=== PATIENT | female | born 1965 | race Caucasian/White ===

== ENCOUNTER 2024-03-11 21:59 | Emergency (ER) | payer BC, SELFPAY ==
--- OUTSIDE RECORDS SUMMARY | 2024-03-11 22:03 | XMS REPORT | Continuity of Care Document ---
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 another medical problem, are taking prescription medicines, or are an older adult. Treatment most often involves lifestyle changes. You may also need medicines. Your healthcare provider will tell you which will work best for you. Follow the advice below to help avoid this problem in the future. Lifestyle changes These lifestyle changes can help prevent constipation: ? Diet. Eat a high-fiber diet, with fresh fruit and vegetables, and reduce dairy intake, meats, and processed foods ? Fluids. It's important to get enough fluids each day. Drink plenty of water when you eat more fiber. If you are on diet that limits the amount of fluid you can have, talk about this with your healthcare provider. ? Regular exercise. Check with your healthcare provider first. Medicines Take any medicines as directed. Some laxatives are safe to use only every now and then. Others can be taken on a regular basis. While laxatives don't cause bowel dependence, they are treating the symptoms. So your constipation may return if you don't make other changes. Talk with your healthcare provider or pharmacist if you have questions. Prescription pain medicines can cause constipation. If you are taking this kind of medicine, ask your healthcare provider if you should also take a stool softener. Medicines you may take to treat constipation include: ? Fiber supplements ? Stool softeners ? Laxatives ? Enemas ? Rectal suppositories Follow-up care Follow up with your healthcare provider if symptoms don't get better in the next few days. You may need to have more tests or see a specialist. Call 911 Call 911 if any of these occur: ? Trouble breathing ? Stiff, rigid abdomen that is severely painful to touch ? Large amount of blood in the stool ? Confusion ? Fainting or loss of consciousness ? Rapid heart rate ? Chest pain When to seek medical advice Call your healthcare provider right away if any of these occur: ? Fever of 100.4?F (38?C) or higher, or as directed by your healthcare provider ? Failure to resume normal bowel movements ? Pain in your abdomen or back gets worse ? Nausea or vomiting ? Swelling in your abdomen ? Small amount of blood in the stool ? Black, tarry stool ? Involuntary weight loss ? Weakness Last Reviewed Date: 2021 ? [id number] [employer]. All rights reserved. This information is not intended as a substitute for professional medical care. Always follow your healthcare professional's instructions. [facility]2024-08-15 12:11:49 [facility]ed [facility] 11[facility]35[facility]54 I called patient back. She stated that she would like to know what to do from here regarding her knee. I told her to make an appointment to see Dr Salguero and we can go from there. [facility] MedicineMem[facility] HospitalBtsvpcq3795-36-61 11:30:00 Copied from [facility] #[id number]. Topic: PCP/Nurse Question >> Jan 07, 2024 11:28 AM Ximena Jimenez wrote: Jess Little called to speak with a nurse or provider. Pt is asking for a referral for her knee pt is asking for a call back please and tk you [facility] HospitalWlbwqmh5614-84-71 19:23:10* [facility] HospitalVwpnnor1545-18-11 19:23:10 [facility] HospitalGjpycuf6712-15-40 19:23:10 [facility] HospitalMtpkeay2065-25-76 07:30:37* [facility] HospitalItduxdk0698-61-16 07:30:37 [facility] HospitalVzmpiqk2691-10-38 07:30:37 [facility] HospitalUmboujo1457-85-06 17:29:41 Attention: MA/Nurse Pharmacy support is unable to resolve this request because the patient is more than 90 days overdue for an office visit and/or labs. Please follow your clinic workflow to resolve this request. Requested Prescriptions Pending Prescriptions Disp Refills traZODone (Desyrel) 100 MG tablet [Pharmacy Med Name: Trazodone 100mg Tablet] 90 tablet Sig: TAKE ONE (1) TABLET(S) BY MOUTH AT BEDTIME. Patient needs: office visit *Additional Information: Acute visit 04/27/23 No recent documentation. Review to acknowledge stable and continuation of current therapy. [facility]Me[facility] [id number] 17:12:19 Images from the original note were not included. Recommendation for pharmacist: *Refill - 90 day supply + 1 refill (6 months) Requested Prescriptions Pending Prescriptions Disp Refills traZODone (Desyrel) 100 MG tablet [Pharmacy Med Name: Trazodone 100mg Tablet] 90 tablet Sig: TAKE ONE (1) TABLET(S) BY MOUTH AT BEDTIME. Patient needs: office visit by April 2024 Courtesy refill?: No *Additional Info: Pharmacy TechnicianMemorial Hermann Pearland [id number] 17:10:24* [facility] 2023-11-24 17:10:24 [facility] HospitalIrkvogo8762-42-32 17:10:24 [facility] HospitalZroaaaa2227-11-00 12:03:45 Images from the original note were not included. Attention: MA/Nurse Pharmacy support is unable to resolve this request because the patient is more than 90 days overdue for an office visit and/or labs. Please review with the provider and follow your clinic workflow to resolve this request. Requested Prescriptions Pending Prescriptions Disp Refills montelukast (Singulair) 10 MG tablet [Pharmacy Med Name: Montelukast 10mg Tablet] 90 tablet Sig: TAKE ONE (1) TABLET(S) BY MOUTH AT BEDTIME. *Additional Information: Pharmacy TechnicianMisael Campbell
[2024-03-11] MEDS ORDERED: FAMOTIDINE 20 MG/2 ML VIAL IV ONE (22:59)
[2024-03-11] MEDS ORDERED: MORPHINE 4 MG/ML SYR ONE (23:00)
[2024-03-11] MEDS ORDERED: ONDANSETRON 4 MG/2 ML VIAL ONE (23:00)
[2024-03-11] MEDS ORDERED: KETOROLAC 30 MG/ML INJ ONE (23:00)
[2024-03-11] MEDS ORDERED: NA CHLORIDE 0.9% 1,000 ML ONE (23:01)
[2024-03-11 23:06] LABS: Absolute Basophils 0.1 K/uL (0-0.5); Absolute Eosinophils 0.1 K/uL (0-0.5); Absolute Lymphocytes (CBC) 2.7 K/uL (0.7-4.9); Absolute Neutrophil 4.4 K/uL (1.8-8.0); Basophils % 0.8 % (0-1.3); Eosinophils % 1.3 % (0-4.4); Hemoglobin 12.8 g/dL (12.0-15.0); Lymphocytes % 32.5 % (15.3-44.8); MCH 30.7 pg (27.0-35.0); MCHC 33.7 g/dL (32.0-36.0); MCV 91.2 fL (80-100); MPV 7.3 fL (7.6-11.3); Neutrophils % 53.4 % (41.7-73.7); Platelets 250 thou/uL (152-406); RBC Red Blood Cell Count 4.17 M/uL (3.86-4.86)
[2024-03-11 23:07] LABS: Renal Epithelial <5 /HPF (None Seen); Specific Gravity < 1.005 (1.005-1.030); Sqamous Epithelial None Seen /HPF (None Seen); Urine Bacteria None Seen /HPF (<20); Urine Bilirubin NEGATIVE (Negative); Urine Blood Negative (Negative); Urine Clarity Clear (Clear); Urine Color Colorless (Yellow); Urine Culture Reflex Order NOT NEEDED; Urine Glucose NEGATIVE (Negative); Urine Ketones NEGATIVE (Negative); Urine Microscopic Reflex YN ORDER UMIC; Urine Nitrite NEGATIVE (Negative); Urine Protein NEGATIVE (Negative); Urine RBC None Seen /HPF (None Seen); Urine Urobilinogen Normal (Normal); Urine WBC <5 /HPF (<5)
[2024-03-11 23:21] LABS: Albumin 3.8 g/dL (3.4-5.0); Albumin/Globulin Ratio 1.2 (1.1-1.8); Anion Gap 8.8 mEq/L (5.0-15.0); Bilirubin Total 0.4 mg/dL (0.2-1.0); Globulin 3.3 g/dL (2.3-3.5); Potassium 3.8 mEq/L (3.5-5.1); Protein, Total 7.1 g/dL (6.4-8.2)
[2024-03-11] MEDS ORDERED: methocarbamoL 750 MG TAB ONE (23:41)
--- NOTE | 2024-03-12 02:16 | EDPHYS ---
Physician Documentation [facility] Name: Almaz Tran Age: 59 yrs Sex: Female : 1965 Arrival Date: 03/11/2024 Time: 21:59 Bed 13 Private MD: ED Physician Jalen Naik HPI: 03/11 22:03 This 59 yrs old Female presents to ER via Unassigned with complaints of Back sp4 Pain, Hip Pain. 03/12 19:30 59-year-old female presents with upper thoracic back pain, the past 1 week that did not sp4 improve with medications provided at the urgent care clinic.. Historical: - Allergies: 03/11 23:10 Codeine; ha1 - PMHx: 23:10 Anxiety; ha1 - PSHx: 23:10 Tonsillectomy; ha1 23:11 Appendectomy; ha1 - Immunization history:: Adult Immunizations up to date. - Infectious Disease History:: Denies. - Social history:: Smoking status: Patient/guardian denies using tobacco, the patient reports quitting approximately 2 years ago. - Family history:: not pertinent. ROS: 03/12 19:30 Constitutional: Negative for fever, chills, and weight loss, Eyes: Negative for injury, sp4 pain, redness, and discharge, Back: Positive for Positive for upper back pain, All other systems are negative, Exam: 02:46 Constitutional: This is a well developed, well nourished patient who is awake, alert, sp4 and in no acute distress. Head/Face: Normocephalic, atraumatic. Eyes: Pupils equal round and reactive to light, extra-ocular motions intact. Lids and lashes normal. Conjunctiva and sclera are not injected. Cornea within normal limits. Periorbital areas with no swelling, redness, or edema. ENT: Nares patent. No nasal discharge, no septal abnormalities noted. Tympanic membranes are normal and external auditory canals are clear. Oropharynx with no redness, swelling, or masses, exudates, or evidence of obstruction, uvula midline. Mucous membranes moist. Neck: Trachea midline, no thyromegaly or masses palpated, and no cervical lymphadenopathy. Supple, full range of motion without nuchal rigidity, or vertebral point tenderness. Chest/axilla: Normal chest wall appearance and motion. Nontender with no deformity. No lesions are appreciated. Cardiovascular: Regular rate and rhythm with a normal S1 and S2. No gallops, murmurs, or rubs. Normal PMI, no JVD. No pulse deficits. Respiratory: Lungs have equal breath sounds bilaterally, clear to auscultation and percussion. No rales, rhonchi or wheezes noted. No increased work of breathing, no retractions or nasal flaring. Abdomen/GI: Soft, with normal bowel sounds. No distension or tympany. No guarding or rebound. No evidence of tenderness throughout. Back: No spinal tenderness. No costovertebral tenderness. Skin: Warm, dry with normal turgor. Normal color with no rashes, no lesions, and no evidence of cellulitis. MS/ Extremity: Pulses equal, no cyanosis. Neurovascular intact. Full, normal range of motion. Neuro: Awake and alert, GCS 15, oriented to person, place, time, and situation. Cranial nerves II-XII grossly intact. Motor strength 5/5 in all extremities. Sensory grossly intact. Psych: Awake, alert, with orientation to person, place and time. Behavior, mood, and affect are within normal limits 02:46 ECG was reviewed by the Attending Physician. EKG 02:26 Sinus Aroldo at 58 bpm Vital Signs: 03/11 22:06 BP 155 / 75; Pulse 75; Resp 17 S; Temp 97.2(T); Pulse Ox 97% on R/A; Weight 66.68 kg; ha1 Height 5 ft. 6 in. ; Pain 8/10; 22:30 BP 142 / 72; Pulse 75; Resp 17; Temp 98; Pulse Ox 100% ; Pain 10/10; rg5 23:30 BP 149 / 77; Pulse 66; Resp 17; Pulse Ox 97% on R/A; Pain 3/10; rg5 03/12 00:00 BP 149 / 75; Pulse 68; Resp 17; Pulse Ox 96% on R/A; rg5 01:30 BP 105 / 52; Pulse 69; Resp 17; Pulse Ox 96% on R/A; Pain 6/10; rg5 02:16 BP 123 / 66; Pulse 67; Resp 17; Pulse Ox 95% on R/A; Pain 5/10; rg5 03/11 22:06 Body Mass Index 23.73 (66.68 kg, 167.64 cm) ha1 03/11 22:06 Pain Scale: Adult ha1 22:30 Pain Scale: Adult rg5 23:30 Pain Scale: Adult rg5 01:30 Pain Scale: Adult rg5 02:16 Pain Scale: Adult rg5 Ni Coma Score: 03/11 22:30 Eye Response: spontaneous(4). Motor Response: obeys commands(6). Verbal Response: rg5 oriented(5). Total: 15. 03/12 19:30 Eye Response: spontaneous(4). Motor Response: obeys commands(6). Verbal Response: sp4 oriented(5). Total: 15. MDM: 03/11 22:08 Medical Screening Exam initiated sp4 03/12 19:30 Differential diagnosis: arthritis, chronic back pain, Fatigue Fracture Joint Injury sp4 Osteoporosis ruptured disc. Data reviewed: vital signs, nurses notes, lab test result(s), radiologic studies, CT scan. Consideration of Admission/Observation Escalation of care including admission/observation considered. ED course: PROCEDURE: CT Chest, Abdomen and Pelvis With Intravenous Contrast CLINICAL INDICATION: The patient is 59 years old and is Female; Chest pain. TECHNIQUE: Axial computed tomography images of the chest, abdomen and pelvis with intravenous contrast. Sagittal and coronal reformatted images were created and reviewed. This CT exam was performed using one or more of the following dose reduction techniques: automated exposure control, adjustment of the mA and/or kV according to patient size, and/or use of iterative reconstruction technique. COMPARISON: None. FINDINGS: CHEST: LUNGS: Unremarkable No mass. No consolidation. PLEURAL SPACE: Unremarkable No significant effusion. No pneumothorax. HEART: No cardiomegaly. No significant pericardial effusion. ABDOMEN: LIVER: Focal fatty change along the falciform ligament. Otherwise, no focal hepatic parenchymal abnormality, allowing for phase of contrast. GALLBLADDER AND BILE DUCTS: Unremarkable No calcified stones. No ductal dilation. PANCREAS: Unremarkable No ductal dilation. No mass. SPLEEN: Unremarkable No splenomegaly. ADRENALS: Unremarkable No mass. KIDNEYS AND URETERS: Simple exophytic right-sided renal cyst. No follow-up of this simple cyst is necessary. Otherwise bilaterally symmetric nephrograms. No hydronephrosis or obstructive intrarenal or intraureteral stones. No solid mass. STOMACH AND BOWEL: Moderate ascending and transverse colonic stool burden. No evidence of small or large bowel obstruction. No perienteric or pericolonic fat stranding or abnormal mucosal thickening. PELVIS: APPENDIX: No findings to suggest acute appendicitis. BLADDER: Unremarkable No mass. REPRODUCTIVE: Hysterectomy. CHEST, ABDOMEN and PELVIS: INTRAPERITONEAL SPACE: Unremarkable No significant fluid collection. No free air. BONES/JOINTS: Osteitis pubis incidentally demonstrated. Intraosseous hemangioma within the T12 vertebral body. Relative osteopenic appearance of the bones, particularly in the pelvis and proximal visualized bilateral femurs. No dislocation. No displaced or depressed rib fractures. No appreciable sternal or vertebral fractures. No suspicious lytic or blastic bone lesions. No central pulmonary arterial filling defects. SOFT TISSUES: Unremarkable VASCULATURE: Allowing for motion artifact about the level of the aortic valve, no thoracic aortic aneurysm or gross dissection. Mild thoracic and moderate abdominal aortic calcified atherosclerosis. No abdominal aortic aneurysm or dissection. Moderate multivessel coronary calcifications, greatest in the left main and proximal LAD. LYMPH NODES: Unremarkable No enlarged lymph nodes. IMPRESSION: 1. No acute abnormality of the chest, abdomen, or pelvis. 2. Moderate multivessel coronary calcifications, greatest in the left main and proximal LAD. 3. Relative osteopenic appearance of the bones, particularly in the pelvis and proximal visualized bilateral femurs. Consider further characterization by DEXA scan if not recently performed. 4. Additional non acute findings as above. Electronically signed by: Burak Fontana MD 03/12/2024 01:43 AM . 03/11 22:24 Order name: CBC with Diff; Complete Time: 01: sp4 03/11 22:24 Order name: CMP; Complete Time: : sp4 03/11 22:24 Order name: Lipase; Complete Time: : sp4 03/11 22:24 Order name: Urinalysis w/ reflexes; Complete Time: : sp4 03/11 22:24 Order name: CT Chest, Abdomen, Pelvis - W/Contrast sp4 03/12 02:16 Order name: EKG; Complete Time: : sp4 03/11 22:24 Order name: IV Saline Lock; Complete Time: 23: sp4 03/11 22:24 Order name: Labs collected and sent; Complete Time: 23: sp4 03/12 02:16 Order name: EKG - Nurse/Tech; Complete Time: sp4 EC:26 Rate is 58 beats/min. Rhythm is regular, Sinus bradycardia. QRS [place] is Normal. LA sp4 interval is normal. QRS interval is normal. QT interval is normal. No Q waves. T waves are Normal. No ST changes noted. Clinical impression: No evidence of ischemia. Interpreted by me. Reviewed by me. Administered Medications: 03/11 23:00 Drug: Famotidine IVP 20 mg IVP once; dilute with 10 mL 0.9% NaCl; give over 2 minutes rg5 Route: IVP; Site: right antecubital; 03/12 00:05 Follow up: Response: No adverse reaction rg5 03/11 23:00 Drug: TORadol - Ketorolac IVP 15 mg IVP once Route: IVP; Site: right antecubital; rg5 03/12 00:07 Follow up: Response: No adverse reaction; Pain is decreased rg5 03/11 23:00 Drug: Ondansetron IVP 4 mg IVP once; over 2 minutes Route: IVP; Site: right antecubital;rg5 03/12 00:06 Follow up: Response: No adverse reaction rg5 03/11 23:00 Drug: NS 0.9% IV 1000 ml IV at 1 bolus Per protocol; to be given as a bolus over 60 rg5 minutes Route: IV; Rate: 1 bolus; Site: right antecubital; 23:00 Follow up: IV Status: Completed infusion; IV Intake: 1000ml rg5 23:20 Drug: morphine IVP or IV 4 mg IVP once over 4 mins Route: IVP; Infused Over: 4 mins; rg5 Site: right antecubital; 03/12 00:07 Follow up: Response: No adverse reaction; Pain is decreased rg5 03/11 23:42 Drug: Methocarbamol PO 1500 mg PO once Route: PO; rg5 03/12 00:00 Follow up: Response: No adverse reaction; Pain is decreased rg5 Disposition Summary: 03/12/24 02:30 Discharge Ordered Problem: new(03/12/24 02:30) sp4 Symptoms: have improved(03/12/24 02:30) sp4 Condition: Stable(03/12/24 02:30) sp4 Diagnosis - Acute Thoracic back pain sp4 Followup: sp4 - With: Rich Garcia MD - When: 7 - 10 days - Reason: Recheck today's complaints Discharge Instructions: - Discharge Summary Sheet sp4 - Acute Back Pain, Adult sp4 Forms: - Patient Portal Instructions sp4 Prescriptions: - Ibuprofen 800 mg Oral Tablet - take 1 tablet ORAL route every 8 hours As needed take with food; 30 tablet; sp4 Refills: 0, Product Selection Permitted - Tramadol 50 mg Oral tablet - take 1 tablet ORAL route every 8 hours as needed; 20 tablet; Refills: 0, sp4 Product Selection Permitted - methocarbamol 750 mg Oral tablet - take 1 tablet ORAL route every 8 hours for 2 weeks PRN back pain; 60 tablet; sp4 Refills: 0, Product Selection Permitted Signatures: Dispatcher [employer] EDMS Stacey Rolle RN RN ha1 Jalen Naik MD MD sp4 Mehrdad Mcduffie RN RN rg5 Corrections: (The following items were deleted from the chart) 03/11 22:24 22:24 CBC+H.LAB.BRZ ordered. EDMS EDMS 22:24 22:24 COMPREHENSIVE METABOLIC PANEL+C.LAB.BRZ ordered. EDMS EDMS 22:24 22:24 LIPASE+C.LAB.BRZ ordered. EDMS EDMS 22:24 22:24 Urinalysis+U.LAB.BRZ ordered. EDMS EDMS 23:12 23:10 Allergies: No Known Allergies; ha1 ha1 03/12 02:17 02:16 Home sp4 sp4 02:17 02:16 new sp4 sp4 02:17 02:16 have improved sp4 sp4 02:17 02:16 Stable sp4 sp4 02:17 02:16 Low back pain sp4 sp4 02:17 02:16 Acute thoracic back pain sp4 sp4
--- NOTE | 2024-03-12 02:16 | ER ---
Nurse's Notes [facility] Name: Almaz Tran Age: 59 yrs Sex: Female : 1965 Arrival Date: 03/11/2024 Time: 21:59 Bed 13 Private MD: Diagnosis: Acute Thoracic back pain Presentation: 03/11 22:06 Chief complaint: Patient states: BACK FLANK PAIN PAST FOUR DAYS. ha1 22:06 Coronavirus screen: Vaccine status: Patient reports receiving the 2nd dose of the covid ha1 vaccine. [employer]ex[employer]. Ebola Screen: No symptoms or risks identified at this time. Initial Sepsis Screen: Does the patient meet any 2 criteria? No. Patient's initial sepsis screen is negative. Does the patient have a suspected source of infection? No. Patient's initial sepsis screen is negative. Risk Assessment: Do you want to hurt yourself or someone else? Patient reports no desire to harm self or others. Onset of symptoms was March 11, 2024. 22:06 Method Of Arrival: Ambulatory ha1 22:06 Acuity: ELIGIO 3 ha1 Triage Assessment: 23:11 General: Appears uncomfortable, Behavior is cooperative. Pain: Complains of pain in ha1 back. Neuro: Level of Consciousness is awake, alert, obeys commands, Oriented to person, place, time, situation. Cardiovascular: Patient's skin is warm and dry. Respiratory: Airway is patent Respiratory effort is even, unlabored, Respiratory pattern is regular, symmetrical. Musculoskeletal: Circulation, motion, and sensation intact. Historical: - Allergies: 23:10 Codeine; ha1 - PMHx: 23:10 Anxiety; ha1 - PSHx: 23:10 Tonsillectomy; ha1 23:11 Appendectomy; ha1 - Immunization history:: Adult Immunizations up to date. - Infectious Disease History:: Denies. - Social history:: Smoking status: Patient/guardian denies using tobacco, the patient reports quitting approximately 2 years ago. - Family history:: not pertinent. Screenin:30 [facility] ED Fall Risk Assessment (Adult) History of falling in the last 3 months, rg5 including since admission No falls in past 3 months (0 pts) Confusion or Disorientation No (0 pts) Intoxicated or Sedated No (0 pts) Impaired Gait No (0 pts) Mobility Assist Device Used No (0 pt) Altered Elimination No (0 pt) Score/Fall Risk Level 0 - 2 = Low Risk Oriented to surroundings, Maintained a safe environment, Educated pt \T\ family on fall prevention, incl call for assistance when getting out of bed, Hourly rounding (assess needs \T\ fall precautionary measures) done. Abuse screen: Denies threats or abuse. Nutritional screening: No deficits noted. Tuberculosis screening: No symptoms or risk factors identified. Assessment: 22:30 General: Appears in no apparent distress. comfortable. rg5 22:30 Pain: Complains of pain in back Pain radiates to right lower back Pain currently is 10 rg5 out of 10 on a pain scale. Quality of pain is described as aching. Neuro: Level of Consciousness is awake, alert, obeys commands, Oriented to person, place, time, situation. Cardiovascular: Denies chest pain, Heart tones S1 S2 Patient's skin is warm and dry. Respiratory: Airway is patent Trachea midline Respiratory effort is even, unlabored, Respiratory pattern is regular, symmetrical. GI: Abdomen is round Bowel sounds present X 4 quads. Abd is soft and non tender. : No signs and/or symptoms were reported regarding the genitourinary system. EENT: No deficits noted. Derm: Skin is intact, Skin is dry, Skin is normal, Skin temperature is warm. Musculoskeletal: Circulation, motion, and sensation intact. Range of motion: intact in all extremities. 23:00 Reassessment: Patient and/or family updated on plan of care and expected duration. Pain rg5 level reassessed. Patient is alert, oriented x 3, equal unlabored respirations, skin warm/dry/pink. 03/12 00:23 Reassessment: Patient and/or family updated on plan of care and expected duration. Pain rg5 level reassessed. Patient is alert, oriented x 3, equal unlabored respirations, skin warm/dry/pink. Patient states symptoms have improved. 01:30 Reassessment: Patient and/or family updated on plan of care and expected duration. Pain rg5 level reassessed. Patient is alert, oriented x 3, equal unlabored respirations, skin warm/dry/pink. Patient states symptoms have improved. 02:00 Reassessment: Patient and/or family updated on plan of care and expected duration. Pain rg5 level reassessed. Patient is alert, oriented x 3, equal unlabored respirations, skin warm/dry/pink. Patient states feeling better. Patient states symptoms have improved. Vital Signs: 03/11 22:06 BP 155 / 75; Pulse 75; Resp 17 S; Temp 97.2(T); Pulse Ox 97% on R/A; Weight 66.68 kg; ha1 Height 5 ft. 6 in. ; Pain 8/10; 22:30 BP 142 / 72; Pulse 75; Resp 17; Temp 98; Pulse Ox 100% ; Pain 10/10; rg5 23:30 BP 149 / 77; Pulse 66; Resp 17; Pulse Ox 97% on R/A; Pain 3/10; rg5 03/12 00:00 BP 149 / 75; Pulse 68; Resp 17; Pulse Ox 96% on R/A; rg5 01:30 BP 105 / 52; Pulse 69; Resp 17; Pulse Ox 96% on R/A; Pain 6/10; rg5 02:16 BP 123 / 66; Pulse 67; Resp 17; Pulse Ox 95% on R/A; Pain 5/10; rg5 03/11 22:06 Body Mass Index 23.73 (66.68 kg, 167.64 cm) ha1 03/11 22:06 Pain Scale: Adult ha1 22:30 Pain Scale: Adult rg5 23:30 Pain Scale: Adult rg5 01:30 Pain Scale: Adult rg5 02:16 Pain Scale: Adult rg5 Ni Coma Score: 03/11 22:30 Eye Response: spontaneous(4). Motor Response: obeys commands(6). Verbal Response: rg5 oriented(5). Total: 15. 03/12 19:30 Eye Response: spontaneous(4). Motor Response: obeys commands(6). Verbal Response: sp4 oriented(5). Total: 15. ED Course: 03/11 22:02 Patient arrived in ED. jj6 22:03 Jalen Naik MD is Attending Physician. sp4 22:07 Mehrdad Mcduffie, ALIE is Primary Nurse. rg5 22:30 Patient has correct armband on for positive identification. Bed in low position. Call rg5 light in reach. Side rails up X 1. Door closed. Noise minimized. Warm blanket given. 22:30 Arm band placed on. rg5 22:30 No provider procedures requiring assistance completed. Inserted saline lock: 20 gauge rg5 in right antecubital area, using aseptic technique. Blood collected. Flushed with 10 mL NS. 23:10 Triage completed. ha1 03/12 00:10 CT Chest, Abdomen, Pelvis - W/Contrast In Process Unspecified. EDMS 02:14 Rich Garcia MD is Referral Physician. sp4 02:17 Provided Education on: POST ER CARE. rg5 02:18 IV discontinued, bleeding controlled, No redness/swelling at site. Pressure dressing rg5 applied. 02:29 Rich Garcia MD is Referral Physician. sp4 Administered Medications: 03/11 23:00 Drug: Famotidine IVP 20 mg IVP once; dilute with 10 mL 0.9% NaCl; give over 2 minutes rg5 Route: IVP; Site: right antecubital; 03/12 00:05 Follow up: Response: No adverse reaction rg5 03/11 23:00 Drug: TORadol - Ketorolac IVP 15 mg IVP once Route: IVP; Site: right antecubital; rg5 03/12 00:07 Follow up: Response: No adverse reaction; Pain is decreased rg5 03/11 23:00 Drug: Ondansetron IVP 4 mg IVP once; over 2 minutes Route: IVP; Site: right antecubital;rg5 03/12 00:06 Follow up: Response: No adverse reaction rg5 03/11 23:00 Drug: NS 0.9% IV 1000 ml IV at 1 bolus Per protocol; to be given as a bolus over 60 rg5 minutes Route: IV; Rate: 1 bolus; Site: right antecubital; 23:00 Follow up: IV Status: Completed infusion; IV Intake: 1000ml rg5 23:20 Drug: morphine IVP or IV 4 mg IVP once over 4 mins Route: IVP; Infused Over: 4 mins; rg5 Site: right antecubital; 03/12 00:07 Follow up: Response: No adverse reaction; Pain is decreased rg5 03/11 23:42 Drug: Methocarbamol PO 1500 mg PO once Route: PO; rg5 03/12 00:00 Follow up: Response: No adverse reaction; Pain is decreased rg5 Medication: 03/11 22:30 VIS not applicable for this client. rg5 Intake: 23:00 IV: 1000ml; Total: 1000ml. rg5 Outcome: 03/12 02:16 Discharge ordered by . sp4 02:30 Discharge ordered by . sp4 02:43 Discharged to home ambulatory, rg5 02:43 Condition: stable 02:43 Discharge instructions given to patient, Instructed on discharge instructions, follow up and referral plans. Demonstrated understanding of instructions, follow-up care, medications, Prescriptions given X 3, 02:44 Patient left the ED. rg5 Signatures: Dispatcher [employer] EDMS Monica Susannah [email or web address] Stacey Rolle, RN RN ha1 Jalen Naik MD MD sp4 Mehrdad Mcduffie RN RN rg5 Corrections: (The following items were deleted from the chart) 03/11 23:12 23:10 Allergies: No Known Allergies; ha1 ha1
--- NOTE | 2024-03-12 06:26 | RAD REPORT ---
PROCEDURE: CT Chest, Abdomen and Pelvis With Intravenous Contrast CLINICAL INDICATION: The patient is 59 years old and is Female; Chest pain. TECHNIQUE: Axial computed tomography images of the chest, abdomen and pelvis with intravenous contrast. Sagitt al and coronal reformatted images were created and reviewed. This CT exam was performed using one or more of the following dose reduction techniques: automated exposure control, adjustment of the m A and/or kV according to patient size, and/or use of iterative reconstruction technique. COMPARISON: None. FINDINGS: CHEST: LUNGS: Unremarkable No mass. No consolidation. PLEURAL SPACE: Unremarkable No significant effusion. No pneumothorax. HEART: No cardiomegaly. No significant pericardial effusion. ABDOMEN: LIVER: Focal fatty change along the falciform ligament. Otherwise, no focal hepatic parenchymal abn ormality, allowing for phase of contrast. GALLBLADDER AND BILE DUCTS: Unremarkable No calcified stones. No ductal dilation. PANCREAS: Unremarkable No ductal dilation. No mass. SPLEEN: Unremarkable No splenomegaly. ADRENALS: Unremarkable No mass. KIDNEYS AND URETERS: Simple exophytic right-sided renal cyst. No follow-up of this simple cyst is necessary. Otherwise bilaterally symmetric nephrograms. No hydronephrosis or obstructive intrarenal or intraureteral stones. No solid mass. STOMACH AND BOWEL: Moderate ascending and transverse colonic stool burden. No evidence of small or large bowel obstruction. No perienteric or pericolonic fat stranding or abnormal mucosal thickening. PELVIS: APPENDIX: No findings to suggest acute appendicitis. BLADDER: Unremarkable No mass. REPRODUCTIVE: Hysterectomy. CHEST, ABDOMEN and PELVIS: INTRAPERITONEAL SPACE: Unremarkable No significant fluid collection. No free air. BONES/JOINTS: Osteitis pubis incidentally demonstrated. Intraosseous hemangioma within the T12 vertebral body. Relative osteopenic appearance of the bones, particularly in the pelvis and proximal visualiz ed bilateral femurs. No dislocation. No displaced or depressed rib fractures. No appreciable sternal or vertebral fractures. No suspicious lytic or blastic bone lesions. No central pulmonary arterial filling defects. SOFT TISSUES: Unremarkable VASCULATURE: Allowing for motion artifact about the level of the aortic valve, no thoracic aortic a neurysm or gross dissection. Mild thoracic and moderate abdominal aortic calcified atherosclerosis. No abdominal aortic aneurysm or dissection. Moderate multivessel coronary calcifications, greatest in the left main and proximal LAD. LYMPH NODES: Unremarkable No enlarged lymph nodes. IMPRESSION: 1. No acute abnormality of the chest, abdomen, or pelvis. 2. Moderate multivessel coronary calcifications, greatest in the left main and proximal LAD. 3. Relative osteopenic appearance of the bones, particularly in the pelvis and proximal visualized bilateral femurs. Consider further characterization by DEXA scan if not recently performed. 4. Additional nonacute findings as above. Electronically signed by: Burak Fontana MD 03/12/2024 01:43 AM CDT RP Due to temporary technical issues with the PACS/[employer] reporting system, reports are being alejandra d by the in-house radiologist without review as a courtesy to ensure prompt reporting the interpreting radiologist is fully responsible for the content of the report. Transcribed Date/Time: 03/12/2024 6:26 AM
[2024-03-12 09:05] VITALS: TEMP 98
[2024-03-12 09:14] VITALS: BP 123/66; O2SAT 95
--- NOTE | 2024-03-15 13:01 | EKG ---
Test Date: 2024-03-12 Test Time: 02:26:04 Dramatic Director: SANTO MEASUREMENT RESULTS: Intervals: Rate: 58 IL: 144 QRSD: 82 QT: 432 QTc: 424 Grant: P: 32 IL: 144 QRS: 84 T: 47 INTERPRETIVE STATEMENTS: Sinus bradycardia Otherwise normal ECG Compared to ECG 08/20/2015 14:23:21 Sinus rhythm no longer present Electronically Signed On 03-15-24 12:52:43 CDT by Duncan aSlmeron
== END 2024-03-12 02:44 | disposition home or self-care (01) ==
LOC: ER 21:59
DX: M54.6 Pain in thoracic spine (principal)
CPT/HCPCS: 93005; 85025; 81001; 36415; 83690; 80053; 71260; 74177; 96375; 96374; 99284; Q9967; J2405; J7030